=== PATIENT | female | born 1985 | race Caucasian/White ===

== ENCOUNTER 2017-06-26 12:05 | Emergency (ER) | payer OTHER ==
[~2017-06-26] VITALS: Ht 167.6 cm; Wt 79.4 kg
[~2017-06-26 12:05] MED LIST: NO REPORTED MEDS
[2017-06-26 12:15] VITALS: BP 152/97
== END 2017-06-26 17:17 | disposition home or self-care (01) ==
LOC: ER 12:06
DX: M25.571 Pain in right ankle and joints of right foot (principal); J45.909 Unspecified asthma, uncomplicated; F10.10 Alcohol abuse, uncomplicated; F17.200 Nicotine dependence, unspecified, uncomplicated
CPT/HCPCS: 73610-TC; 73630-TC; A4606; Z7610

== ENCOUNTER 2020-12-08 11:02 | Emergency (ER) | payer OTHER ==
[~2020-12-08] VITALS: Ht 167.6 cm; Wt 90.7 kg
[2020-12-08] MEDS ORDERED: ONDANSETRON HCL/PF 4 MG/2 ML VIAL ONE (11:36)
[2020-12-08] MEDS ORDERED: PANTOPRAZOLE 40 MG VIAL ONE (11:36)
[2020-12-08] MEDS ORDERED: METOCLOPRAMIDE HCL 10 MG/2 ML VIAL ONE (11:36)
--- NOTE | 2020-12-08 11:41 | NUR ---
BIBS FROM HOME TO ER BED 7. AAOX4. NOT IN RESP DISTRESS. AMBULATORY. CAME IN FOR ABDOMINAL PAIN, NAUSEA AND "SEVER HEARTBURN" WHICH STARTED YESTERDAY. MD WAS AT THE BEDSIDE FOR EVAL. ORDERS RECEIVED, NOTED AND CARRIED OUT. IV LINE ESTABLISHED ON THE LAC 20G, BLOOD DRAWN AND GIVEN TO PHLEB AT BEDSIDE.
[2020-12-08 11:48] LABS: BASOPHILS # (AUTO) 0.1 K/uL (0.0-0.2); BASOPHILS % (AUTO) 0.7 % (0.0-2.0); EOSINOPHILS % (AUTO) 1.4 % (0.0-6.0); HEMATOCRIT 41 % (33-45); HEMOGLOBIN 13.9 g/dL (11.5-14.8); LYMPHOCYTES # (AUTO) 2.4 K/uL (0.8-4.8); LYMPHOCYTES % (AUTO) 29.9 % (20.0-44.0); MEAN CORPUSCULAR HGB CONC 34 g/dl (31.0-36.0); MEAN CORPUSCULAR VOLUME 89 fL (82-100); MONOCYTES # (AUTO) 0.7 K/uL (0.1-1.30); MONOCYTES % (AUTO) 8.1 % (2.0-12.0); NEUTROPHILS # (AUTO) 4.8 K/uL (1.8-8.9); NEUTROPHILS % (AUTO) 59.9 % (43.0-81.0); PLATELET COUNT (AUTO) 301 K/uL (150-450); WHITE BLOOD COUNT (AUTO) 8.1 K/uL (4.3-11.0)
[2020-12-08 11:54] LABS: CALCIUM, SERUM 9.7 mg/dL (8.5-10.1); CREATININE 0.7 mg/dL (0.6-1.3)
[2020-12-08] MEDS ORDERED: ONDANSETRON HCL/PF 4 MG/2 ML VIAL IVP ONE (12:00)
[2020-12-08] MEDS ORDERED: IV NS 0.9% 1,000 ML BAG IV ONE (12:00)
[2020-12-08] MEDS ORDERED: PANTOPRAZOLE 40 MG VIAL IV ONE (12:00)
[2020-12-08] MEDS ORDERED: METOCLOPRAMIDE HCL 10 MG/2 ML VIAL IV ONE (12:00)
[2020-12-08 12:01] LABS: ALBUMIN 4.1 g/dL (3.4-5.0); BILIRUBIN,DIRECT 0.1 mg/dL (0.0-0.2); BILIRUBIN,TOTAL 0.6 mg/dL (0.2-1.0); TOTAL PROTEIN, SERUM 7.8 g/dL (6.4-8.2)
[2020-12-08] MEDS ORDERED: PANT40TA2 PO (12:13)
--- NOTE | 2020-12-08 12:35 | NUR ---
Patient a/ox4, breathing even and unlabored, no sob noted. Needs attended. Ambulatory with steady gait. IV removed. Catheter intact and site benign. Pressure and 4x4 applied to site. No bleeding noted.Patient discharged to home in stable condition. Written and verbal after care instructions given. Patient verbalizes understanding of instruction.
[2020-12-08 12:39] VITALS: BP 111/76
== END 2020-12-08 12:39 | disposition home or self-care (01) ==
LOC: ER 11:05
DX: K21.9 Gastro-esophageal reflux disease without esophagitis (principal); R10.10 Upper abdominal pain, unspecified; J45.909 Unspecified asthma, uncomplicated; F17.200 Nicotine dependence, unspecified, uncomplicated; Z60.2 Problems related to living alone
CPT/HCPCS: 36415; 71045; 76705; 80048; 80076; 83690; 85025; 96361; 96374; 96375; 99285; C9113; J2405; J2765; J7030

== ENCOUNTER 2021-02-10 09:57 | Emergency (ER) | payer OTHER ==
[~2021-02-10] VITALS: Ht 167.6 cm; Wt 90.7 kg
[~2021-02-10 09:57] MED LIST changes: +PANT40TA2 PO
[2021-02-10 10:11] VITALS: BP 145/77
--- NOTE | 2021-02-10 10:15 | NUR ---
URINE SPECIMEN COLLECTED AND SENT TO LAB.
--- NOTE | 2021-02-10 10:17 | NUR ---
AT BEDSIDE FOR EVAL.
[2021-02-10 10:40] LABS: BILIRUBIN,URINE NEGATIVE (NEGATIVE); COLOR,URINE YELLOW (YELLOW); LEUKOCYTE ESTERASE ,URINE NEGATIVE (NEGATIVE); NITRITE, URINE NEGATIVE (NEGATIVE); PROTEIN,URINE NEGATIVE (NEGATIVE); UGLUCOSE NEGATIVE (NEGATIVE); UROBILINOGEN,URINE 0.2 EU/dL (0.2)
[2021-02-10] MEDS ORDERED: KETOROLAC TROMETHAMINE INJ 60 MG/2 ML VIAL IM ONE (11:00)
[2021-02-10] MEDS ORDERED: KETOROLAC TROMETHAMINE INJ 30 MG/ML VIAL ONE (11:03)
[2021-02-10] MEDS ORDERED: CYCL10TA9 PO (12:42)
[2021-02-10] MEDS ORDERED: IBUP-1955 PO (12:42)
--- NOTE | 2021-02-10 12:47 | NUR ---
Patient discharged to home in stable condition. Written and verbal after care instructions given. Patient verbalizes understanding of instruction.
== END 2021-02-10 12:50 | disposition home or self-care (01) ==
LOC: ER 10:04
DX: M54.50 Low back pain, unspecified (principal); R10.30 Lower abdominal pain, unspecified; N83.202 Unspecified ovarian cyst, left side; F17.200 Nicotine dependence, unspecified, uncomplicated; J45.909 Unspecified asthma, uncomplicated; Z60.2 Problems related to living alone; Z79.899 Other long term (current) drug therapy
CPT/HCPCS: 76856; 81003; 84703; 96372; 99284; J1885

== ENCOUNTER 2021-11-19 11:46 | Emergency (ER) | payer OTHER ==
[~2021-11-19] VITALS: Ht 167.6 cm; Wt 99.8 kg
[~2021-11-19 11:46] MED LIST changes: +CYCL10TA9 PO; +IBUP-1955 PO
[2021-11-19 12:00] VITALS: BP 115/74
[2021-11-19 12:57] LABS: BASOPHILS % (AUTO) 0.4 % (0.0-2.0); EOSINOPHILS % (AUTO) 3.3 % (0.0-6.0); HEMATOCRIT 39 % (33-45); HEMOGLOBIN 13.3 g/dL (11.5-14.8); LYMPHOCYTES # (AUTO) 2.3 K/uL (0.8-4.8); LYMPHOCYTES % (AUTO) 24.8 % (20.0-44.0); MEAN CORPUSCULAR HGB CONC 34 g/dl (31.0-36.0); MEAN CORPUSCULAR VOLUME 87 fL (82-100); MONOCYTES # (AUTO) 0.9 K/uL (0.1-1.30); MONOCYTES % (AUTO) 9.7 % (2.0-12.0); NEUTROPHILS # (AUTO) 5.8 K/uL (1.8-8.9); NEUTROPHILS % (AUTO) 61.8 % (43.0-81.0); PLATELET COUNT (AUTO) 335 K/uL (150-450); RED BLOOD CELL COUNT(AUTO) 4.52 MIL/uL (4.0-5.2); WHITE BLOOD COUNT (AUTO) 9.4 K/uL (4.3-11.0)
[2021-11-19 13:13] LABS: CREATININE 0.9 mg/dL (0.6-1.3); POTASSIUM 4.5 mmol/L (3.5-5.1)
[2021-11-19 13:15] LABS: C-REACTIVE PROTEIN 3.2 mg/dL (0.0-0.9)
== END 2021-11-19 13:21 | disposition home or self-care (01) ==
LOC: ER 11:49
DX: T81.49XA Infection following a procedure, other surgical site, initial encounter (principal); J45.909 Unspecified asthma, uncomplicated; Z60.2 Problems related to living alone
CPT/HCPCS: 99283; 85025; 80048; 87077; 87040 ×2; 85652; 87186; 36415; 86140; 87070 ×2; A6403

== ENCOUNTER 2021-11-28 09:04 | Emergency (ER) | payer OTHER ==
[~2021-11-28] VITALS: Ht 167.6 cm; Wt 93.0 kg
--- NOTE | 2021-11-28 09:20 | NUR ---
Patient came in to the er c/o [place] breast pressure on oral antibiotic had breast reduction 10/15/21. was here for same reason 2 weeks ago. Alert x 4. Kept comfortable,, will continue to monitor accordingly.
--- NOTE | 2021-11-28 09:21 | NUR ---
Dr. Gonzalez at bedside for eval.
--- NOTE | 2021-11-28 09:50 | NUR ---
wound care/ dressing provided. Patient discharged to home in stable condition. Written and verbal after care instructions given. Patient verbalizes understanding of instruction.
[2021-11-28 09:51] VITALS: BP 128/70
== END 2021-11-28 09:52 | disposition home or self-care (01) ==
LOC: ER 09:05
DX: T81.30XA Disruption of wound, unspecified, initial encounter (principal); J45.909 Unspecified asthma, uncomplicated; F17.200 Nicotine dependence, unspecified, uncomplicated; Z98.890 Other specified postprocedural states; Z60.2 Problems related to living alone; Z79.899 Other long term (current) drug therapy
CPT/HCPCS: 99282; A6407

== ENCOUNTER 2022-07-17 09:31 | Emergency (ER) | payer OTHER ==
[~2022-07-17] VITALS: Ht 167.6 cm; Wt 90.7 kg
--- NOTE | 2022-07-17 09:37 | NUR ---
LEFT SIDED EAR/FACE PAIN X 2 WEEKS, WORSE X 4 DAYS. PAIN 10/10 ON PAIN SCALE. VITALS ARE WITHIN NORMAL LIMITS.
[2022-07-17] MEDS ORDERED: AMOX500C2 PO (09:41)
--- NOTE | 2022-07-17 09:41 | NUR ---
DR CHUNG AT BEDSIDE FOR EVAL
[2022-07-17 09:58] VITALS: BP 131/81
--- NOTE | 2022-07-17 09:58 | NUR ---
Patient discharged to home in stable condition. Written and verbal after care instructions given. Patient verbalizes understanding of instruction.
== END 2022-07-17 09:59 | disposition home or self-care (01) ==
LOC: ER 09:34
DX: J32.9 Chronic sinusitis, unspecified (principal); J45.909 Unspecified asthma, uncomplicated; F17.200 Nicotine dependence, unspecified, uncomplicated

== ENCOUNTER 2023-06-10 16:27 | Emergency (ER) | payer MEDICAID, OTHER ==
[~2023-06-10] VITALS: Ht 167.6 cm; Wt 91.2 kg
[~2023-06-10 16:27] MED LIST changes: +AMOX500C2 PO
[2023-06-10 16:36] VITALS: BP 127/87; TEMP 98.4
[2023-06-10] MEDS ORDERED: LIDOCAINE 1% INJ 50 ML MDV IJ ONE (16:48)
[2023-06-10 17:29] VITALS: O2SAT 100
== END 2023-06-10 17:28 | disposition home or self-care (01) ==
LOC: ER 16:44
DX: S61.210A Laceration without foreign body of right index finger without damage to nail, initial encounter (principal); J45.909 Unspecified asthma, uncomplicated; F17.200 Nicotine dependence, unspecified, uncomplicated; Z79.899 Other long term (current) drug therapy; W26.0XXA Contact with knife, initial encounter; Y93.89 Activity, other specified; Y92.89 Other specified places as the place of occurrence of the external cause; Y99.8 Other external cause status
CPT/HCPCS: 99282; 12001; J3490; A6403

== ENCOUNTER 2023-12-15 11:57 | Emergency (ER) | payer MEDICAID, OTHER ==
[~2023-12-15] VITALS: Ht 167.6 cm; Wt 95.3 kg
[2023-12-15 12:17] VITALS: BP 128/83; TEMP 98.2; O2SAT 98
[2023-12-15] MEDS ORDERED: HYDROCODONE/APAP 5/325MG TABLET ONE (12:45)
[2023-12-15] MEDS ORDERED: IBUP-1953 PO (12:46)
[2023-12-15] MEDS: HYDROCODONE/APAP 5/325MG TABLET PO ONE (12:46)
[2023-12-15] MEDS ORDERED: HYDR-3980 PO (12:46)
== END 2023-12-15 13:09 | disposition home or self-care (01) ==
LOC: ER 11:57
DX: T23.231A Burn of second degree of multiple right fingers (nail), not including thumb, initial encounter (principal); J45.909 Unspecified asthma, uncomplicated; Z87.442 Personal history of urinary calculi; F17.200 Nicotine dependence, unspecified, uncomplicated; Z98.890 Other specified postprocedural states; Z79.1 Long term (current) use of non-steroidal anti-inflammatories (NSAID); Z79.899 Other long term (current) drug therapy; X19.XXXA Contact with other heat and hot substances, initial encounter; Y93.89 Activity, other specified; Y92.89 Other specified places as the place of occurrence of the external cause; Y99.8 Other external cause status

== ENCOUNTER 2024-05-19 18:00 | Emergency (ER) | payer MEDICAID, OTHER ==
[~2024-05-19] VITALS: Ht 167.6 cm; Wt 93.0 kg
[~2024-05-19 18:00] MED LIST changes: +HYDR-3980 PO; +IBUP-1953 PO
[2024-05-19] MEDS ORDERED: DOCUSATE SODIUM 100 MG CAPSULE PO ONE (19:45)
[2024-05-19] MEDS: DOCUSATE SODIUM 250 MG CAPSULE PO SCH (19:47)
[2024-05-19 20:25] LABS: PREGNANCY TEST URINE QUAL NEGATIVE (NEGATIVE)
[2024-05-19 20:35] LABS: APPEARANCE,URINE CLEAR (CLEAR); BILIRUBIN,URINE NEGATIVE (NEGATIVE); BLOOD, URINE NEGATIVE Ery/uL (NEGATIVE); COLOR,URINE YELLOW (YELLOW); KETONES,URINE NEGATIVE (NEGATIVE); LEUKOCYTE ESTERASE ,URINE NEGATIVE (NEGATIVE); NITRITE, URINE NEGATIVE (NEGATIVE); PROTEIN,URINE NEGATIVE (NEGATIVE); UGLUCOSE NEGATIVE (NEGATIVE); UROBILINOGEN,URINE 0.2 EU/dL (0.2)
[2024-05-19] MEDS ORDERED: LIDO30AD10 TP (20:39)
[2024-05-19] MEDS ORDERED: SENN8.6T19 PO (20:39)
[2024-05-19] MEDS ORDERED: DOCU-141 PO (20:39)
[2024-05-19] MEDS ORDERED: MAGN400O21 PO (20:39)
[2024-05-19 20:45] VITALS: BP 128/80; TEMP 98.3; O2SAT 99
== END 2024-05-19 20:45 | disposition home or self-care (01) ==
LOC: ER 18:05
DX: K59.00 Constipation, unspecified (principal); M54.9 Dorsalgia, unspecified; F17.200 Nicotine dependence, unspecified, uncomplicated; J45.909 Unspecified asthma, uncomplicated; Z79.1 Long term (current) use of non-steroidal anti-inflammatories (NSAID); Z79.899 Other long term (current) drug therapy
CPT/HCPCS: 84703-TC

== ENCOUNTER 2024-09-25 13:00 | Emergency (ER) | payer OTHER ==
[~2024-09-25 13:00] MED LIST changes: +DOCU-141 PO; +LIDO30AD10 TP; +MAGN400O21 PO; +SENN8.6T19 PO
== END 2024-09-25 13:18 | disposition left against medical advice (07) ==
LOC: ER 13:04
DX: Z00.00 Encounter for general adult medical examination without abnormal findings (principal); Z53.21 Procedure and treatment not carried out due to patient leaving prior to being seen by health care provider

== ENCOUNTER 2025-02-24 15:27 | Emergency (ER) | payer OTHER ==
[~2025-02-24] VITALS: Ht 167.6 cm; Wt 101.6 kg
[~2025-02-24 15:27] MED LIST changes: +IBUP-1957 PO
[2025-02-24 16:11] LABS: PLATELET COUNT (AUTO) 294 K/uL (150-450); RED BLOOD CELL COUNT(AUTO) 4.61 MIL/uL (4.0-5.2); RED CELL DISTRIBUTION WIDTH 12.3 % (11.5-15.0); WHITE BLOOD COUNT (AUTO) 11.2 K/uL (4.3-11.0)
[2025-02-24 16:20] LABS: CALCIUM, SERUM 8.5 mg/dL (8.5-10.1); CREATININE 0.7 mg/dL (0.6-1.3); SODIUM SERUM 138.0 mmol/L (136-145); UREA NITROGEN, BLOOD 12.0 mg/dL (7-18)
[2025-02-24 16:32] LABS: ASPARTATE AMINOTRANSFERASE 16.0 U/L (15-37); NT-PRO BNP 27.0 pg/mL (0-125); TOTAL PROTEIN, SERUM 7.4 g/dL (6.4-8.2)
[2025-02-24] MEDS ORDERED: ALBUTEROL FS 2.5 MG/3 ML VIAL.NEB ONE (16:33)
[2025-02-24] MEDS ORDERED: IPRATROPIUM NEB FS 0.5 MG/2.5 ML AMPUL.NEB ONE (16:33)
[2025-02-24 16:35] VITALS: O2SAT 96
[2025-02-24] MEDS: IPRATROPIUM NEB FS 0.5 MG/2.5 ML AMPUL.NEB NEB ONE (16:38)
[2025-02-24] MEDS: ALBUTEROL FS 2.5 MG/3 ML VIAL.NEB NEB ONE (16:38)
[2025-02-24 16:50] VITALS: O2SAT 98; O2SAT 99
[2025-02-24] MEDS ORDERED: PRED20TA PO (17:16)
[2025-02-24] MEDS ORDERED: AZIT250T13 PO (17:16)
[2025-02-24] MEDS ORDERED: ALBU18HF2 INH (17:16)
[2025-02-24 17:41] VITALS: BP 138/75; TEMP 98.1; O2SAT 98
== END 2025-02-24 17:42 | disposition home or self-care (01) ==
LOC: ER 15:32
DX: R06.02 Shortness of breath (principal); R00.0 Tachycardia, unspecified; F17.200 Nicotine dependence, unspecified, uncomplicated; E28.319 Asymptomatic premature menopause; J44.89 Other specified chronic obstructive pulmonary disease; Z79.1 Long term (current) use of non-steroidal anti-inflammatories (NSAID); Z79.899 Other long term (current) drug therapy; Z86.16 Personal history of COVID-19
CPT/HCPCS: 99285; 71045; 93005 ×2; 85025; 85378; 36415; 80053; 84484; 83880; 94640; J7512